=== PATIENT | female | born 1985 | race Hispanic/Latino ===

== ENCOUNTER 2017-02-09 19:43 | Emergency (ER) | payer OTHER ==
[2017-02-09] MEDS ORDERED: Lactated Ringer's 1,000 ML IV STA (20:36)
--- NOTE | 2017-02-09 21:02 | ED PDOC ---
HPI: Female Pain Time Seen by Provider: 02/09/17 20:27 Chief Complaint (Nursing): Female Genitourinary Chief Complaint (Provider): Vaginal bleeding History Per: Patient History/Exam Limitations: no limitations Onset/Duration Of Symptoms: Hrs Current Symptoms Are (Timing): Still Present Additional Complaint(s): The patient is a 31yo female, G1 with LMP on 01/10, presents to the ED for evaluation of vaginal bleeding, initially starting as spotting earlier today. Patient reports the bleeding has gotten heavier and is associated with cramping. She states she has not had a pre- visit with her [employer]NA[facility] Dr. Garcia. She denies any urinary symptoms as well as feeling lightheaded. She denies any other medical complaints. Abnormal Vaginal Bleeding: Yes Last Menstral Period: 01/10/2017 : 1 Past Medical History Reviewed: Historical Data, Nursing Documentation, Vital Signs Vital Signs: Last Vital Signs Temp 97.8 F 02/09/17 20:05 Pulse 84 02/09/17 20:05 Resp 18 02/09/17 20:05 BP 134/84 02/09/17 20:05 Pulse Ox 100 02/09/17 20:05 - Medical History PMH: No Chronic Diseases - Surgical History Surgical History: No Surg Hx - Family History Family History: States: No Known Family Hx - Living Arrangements Living Arrangements: With Family - Social History Current smoker - smoking cessation education provided: No Ex-Smoker (has not smoked in the last 12 months): No Alcohol: None Drugs: Denies - Home Medications Home Medications: Ambulatory Orders Medication Instructions Recorded Ibuprofen [Motrin Tab] 600 mg PO Q8 PRN #60 tab 02/09/17 - Allergies Allergies/Adverse Reactions: Allergies Allergy/AdvReac Type Severity Reaction Status Date / Time No Known Allergies Allergy Verified 02/09/17 20:05 Review of Systems ROS Statement: Except As Marked, All Systems Reviewed And Found Negative Cardiovascular: Negative for: Light Headedness Genitourinary Female: Positive for: Vaginal Bleeding. Negative for: Dysuria Physical Exam - Reviewed Nursing Documentation Reviewed: Yes Vital Signs Reviewed: Yes - Physical Exam Appears: Positive for: Well, No Acute Distress Head Exam: Positive for: ATRAUMATIC, NORMOCEPHALIC Skin: Positive for: Warm, Dry Eye Exam: Positive for: EOMI, PERRL Neck: Positive for: Painless ROM, Supple Cardiovascular/Chest: Positive for: Regular Rate, Rhythm. Negative for: Murmur Respiratory: Positive for: Normal Breath Sounds. Negative for: Wheezing Gastrointestinal/Abdominal: Positive for: Soft. Negative for: Tenderness, Mass , Distended, Guarding Neurologic/Psych: Positive for: Alert. Negative for: Motor/Sensory Deficits - Laboratory Results Result Diagrams: 02/09/17 20:55 - ECG O2 Sat by Pulse Oximetry: 100 (RA) Pulse Ox Interpretation: Normal Medical Decision Making Medical Decision Making: Time: 2034 Impression: Vaginal bleeding, early Differential: Threatened miscarriage, ectopic , UTI, blighted ovum Plan: -- Labs -- US Transvaginal Reassess beta 4.8 Blood type Rh + EXAM: US , Transvaginal CLINICAL HISTORY: 31 years old, female; Signs and symptoms; Lmp or gestational age (in weeks): 06/27; Other: Bleeding; Additional info: Early preg vag bleed TECHNIQUE: Real-time transvaginal obstetrical ultrasound of the maternal pelvis and a first trimester with image documentation. Transvaginal imaging was used for better evaluation of the fetus and adnexa. COMPARISON: No relevant prior studies available. FINDINGS: Gestation: No intrauterine gestational sac is seen. No mass is identified. Placenta/amniotic fluid: Not applicable Uterus/cervix: Uterus: Uterus measures 5.5 x 2.3 x 3.8 cm. Endometrium is measured at 6 mm in the uterine body, somewhat thinner in the uterine fundus. The endometrium was not interrogated with color Doppler. The cervix is closed No myometrial mass. Ovaries: The ovaries are unremarkable in appearance. Doppler evaluation reveals vascular flow in both ovaries. No adnexal mass is seen. Free fluid: None. IMPRESSION: Ectopic is possible 1. No intrauterine is identified. PROVIDED bHCG IS 4.87 Viky internation units/ml. THIS IS well below THE DISCRIMINATORY ZONE FOR DIAGNOSING AN ECTOPIC PREGNACY. 5 Viky internation units/ml 10 be seen in the 3 week . Differential for this case includes spontaneous , very early IUP or occult ectopic . Focal thickening of the endometrium without color Doppler interrogation. Sonographic literature describes a diagnosis of retained product of conception 80% accurate when the endometrial stripe is greater than 10 mm, and in the presence of hyperemia at the endometrial myometrial junction This case requires appropriate clinical, laboratory and/or imaging follow-up. Thank you for allowing us to participate in the care of your patient. Dictated and Authenticated by: Lien Adame MD 02/09/2017 10:57 PM Eastern Time ([place] & [place]) Reviewed findings with patient and clinically c/w miscarriage. Pt to f/u OB this week without fail. Reasons to RTER reviewed w patient including heavy bleeding, fainting or near fainting, severe pain. Scribe Attestation: Documented by Elke Valdez acting as a scribe for Dulce Miranda MD. Provider Attestation: All medical record entries made by the Scribe were at my direction and personally dictated by me. I have reviewed the chart and agree that the record accurately reflects my personal performance of the history, physical exam, medical decision making, and the department course for this patient. I have also personally directed, reviewed, and agree with the discharge instructions and disposition. Disposition - Clinical Impression Clinical Impression: Miscarriage - Disposition Referrals: Edilberto Garcia MD [Staff Provider] - 02/10/17 (CALL TOMORROW FOR FOLLOW UP APPOINTMENT IN 1-2 DAYS) Disposition Time: 23:00 Condition: GOOD Prescriptions: Ibuprofen [Motrin Tab] 600 mg PO Q8 PRN #60 tab PRN Reason: Pain, Moderate (4-7) Instructions: Spontaneous Miscarriage (ED) Forms: [facility] ED School/Work Excuse
[2017-02-09 21:26] LABS: BASO # 0.1 K/uL (0.0-0.2); BASO % 0.8 % (0.0-2.0); EOS # 0.1 K/uL (0.0-0.7); EOS % 1.3 % (0.0-4.0); HEMATOCRIT 38.4 % (34.0-47.0); LYMPH # 2.6 K/uL (1.0-4.3); LYMPH % 29.2 % (20.0-40.0); MEAN CELL VOLUME 91.2 fl (81.0-99.0); MEAN CORPUSCULAR HEMOGLOBIN 30.9 pg (27.0-31.0); MEAN CORPUSCULAR HGB CONC 33.9 g/dL (33.0-37.0); MEAN PLATELET VOLUME 7.9 fl (7.2-11.7); MONO # 0.9 K/uL (0.0-0.8); MONO % 10.3 % (0.0-10.0); NEUT # 5.2 K/uL (1.8-7.0); NEUT % 58.4 % (50.0-75.0); RED CELL DISTRIBUTION WIDTH 12.7 % (11.5-14.5); WHITE BLOOD COUNT 8.9 K/uL (4.8-10.8)
[2017-02-10 00:07] VITALS: BP 100/68; PULSE 69; RESP 16; TEMP 98; O2SAT 99
--- NOTE | 2017-02-10 08:09 | US ---
HISTORY: Early presenting with vaginal bleeding Beta HCG results: 4.87 units. COMPARISON: None available. TECHNIQUE: Standard protocol for this study/examination. FINDINGS: UTERUS: Measures 2.3 x 3.8 x 5.5 cm. Normal in size and appearance. No fibroid or other mass lesion seen. ENDOMETRIUM: Measures 6.0 mm in diameter. No ultrasound findings to suggest gestational sac, fluid, debris, mass or polyp or other pathologic process within the endometrium. CERVIX: No cervical abnormality identified. RIGHT OVARY: Measures 2.2 x 2.4 x 2.5 cm. No solid mass. Normal flow. Multiple subcentimeter follicles. LEFT OVARY: Measures 1.3 x 2.3 x 2.4 cm. No solid mass. Normal flow. Multiple subcentimeter follicles. FREE FLUID: No significant free fluid noted. OTHER FINDINGS: None. IMPRESSION: Unremarkable pelvic ultrasound. No visible products of conception, no ultrasound findings of the ectopic gestation. Concordant results (preliminary interpretation) provided by [facility]. Procedure Completed: 22:22 Preliminary ([facility]) Report: Dictated and Authenticated: 22:57 Final Interpretation: 08:08. February 10, 2017.
== END 2017-02-10 00:07 | disposition home or self-care (01) ==
LOC: H.ER 19:43
DX: O03.9 Complete or unspecified spontaneous abortion without complication (principal)
CPT/HCPCS: 76817; 81025; 84702; 85025; 86850; 86900; 96360; 99283; J7120